=== PATIENT | male | born 1985 | race Hispanic/Latino ===

== ENCOUNTER 2017-01-15 07:08 | Emergency (ER) | payer BC, OTHER ==
[2017-01-15 07:19] VITALS: BMI 30.3
[2017-01-15 07:21] VITALS: BP 133/81; PULSE 60; RESP 16; TEMP 98.3; O2SAT 99
[2017-01-15] MEDS ORDERED: Ciprofloxacin 0.3% OPTH SOLN OD STA (08:04)
[2017-01-15] MEDS ORDERED: Amoxicillin-Clav 875-125 mg Tab PO STA (08:05)
[2017-01-15] MEDS ORDERED: Amoxicillin-Clav 875-125 mg Tab PO ONE (08:13)
--- NOTE | 2017-01-15 08:59 | C.PDOC ---
History Of Present Illness The patient, a 31 y/o male, presents to the ED for evaluation of right lower eyelid swelling and soreness which was noted this morning. Patient denies eye discharge, direct injury/trauma to the site, or use of contact lenses. Additionally, patient reports an ingrown hair to right 4th finger, as well as a small lump between his right 3rd and 4th webbed space. Patient denies injury/ trauma to his hand. He also denies fever, chills, vision change, extremity numbness/weakness. Time Seen by Provider: 01/15/17 07:56 Chief Complaint (Nursing): Eye Problem History Per: Patient History/Exam Limitations: no limitations Current Symptoms Are (Timing): Still Present Injury To Eye?: No Quality: Other (+soreness ) Wears Contact Lens?: No Associated Symptoms: Swelling Additional History Per: Patient Past Medical History Reviewed: Historical Data, Nursing Documentation, Vital Signs Vital Signs: Last Vital Signs Temp 98.3 F 01/15/17 07:18 Pulse 60 01/15/17 07:18 Resp 16 01/15/17 07:18 BP 133/81 01/15/17 07:18 Pulse Ox 99 01/15/17 12:09 - Medical History PMH: No Chronic Diseases Surgical History: No Surg Hx Family History: States: Unknown Family Hx - Social History Hx Alcohol Use: Yes Hx Substance Use: No - Immunization History Hx Tetanus Toxoid Vaccination: No Hx Influenza Vaccination: No Hx Pneumococcal Vaccination: No Review Of Systems Except As Marked, All Systems Reviewed And Found Negative. Constitutional: Negative for: Fever, Chills Eyes: Positive for: Other (+swelling and soreness to R lower eyelid. no discharge ) Skin: Positive for: Other (+ingrown hair on right 4th digit; small lump between right 3rd and 4th webbed space) Neurological: Negative for: Weakness, Numbness Physical Exam - Physical Exam Appears: Non-toxic, No Acute Distress Skin: Normal Color, Warm, Dry Head: Atraumatic, Normacephalic, No Swelling (periorbital ) Eye(s): bilateral: PERRL, EOMI, right: Other (+stye formation to mid-lower eyelid with minimal swelling. no conjunctival injection. visual acuity WNL ), left: Normal Inspection Oral Mucosa: Moist Neck: Supple Chest: Symmetrical, No Deformity, No Tenderness Cardiovascular: Rhythm Regular Respiratory: Normal Breath Sounds Extremity: Normal ROM, No Tenderness, Capillary Refill (less than 2 seconds ), No Deformity, No Swelling, Other (+ingrown hair to proximal phalanx of right 4th digit with mild erythema. small palpable mass between right 3rd and 4th webbed space ) Pulses: Left Radial: Normal, Right Radial: Normal Neurological/Psych: Oriented x3, Normal Speech, Normal Cognition, Normal Sensation Gait: Steady ED Course And Treatment O2 Sat by Pulse Oximetry: 99 (on RA) - Other Rad Right Hand XR X-Ray: Interpreted by Me, Viewed By Me, Read By Radiologist Interpretation: Accession No. : [id number]. Patient Name / ID : GALILEA GARCIA / [id number]. Exam Date : 01/15/2017 08:20:57 ( Approved ). Study Comment : Sex / Age : M / [id number]. Creator : KENNEDY KWOK. Dictator : Alis Hunt V. Wardrobe Attendant : Automotive Accessory Installer : Alis Hunt V. Approver2 : Report Date : 01/15/2017 08:42:58. My Comment : *. PROCEDURE: Right Hand Radiographs. HISTORY: painful lump web btw 3-4 fingers. COMPARISON: None. FINDINGS: BONES: Normal. No fracture. JOINTS: Normal. No osteoarthritic changes. SOFT TISSUES: Normal. OTHER FINDINGS: None. IMPRESSION: Normal right hand radiographs. If further evaluation for any soft tissue masses is needed, consider MRI of the right hand Progress Note: Right hand XR ordered, results are unremarkable. Pt received Augmentin PO and Ciloxan OD. On reassessment, patient is resting comfortably, showing no signs of distress, and reports an improvement in his symptoms. Patient is stable for discharge from the ED with Rx for Augmentin and Ciloxan eye drops; he is advised to follow up with director behavioral health and hand specialist within 1-2 days for further evaluation. Disposition - Disposition Referrals: Oscar Cueto MD [Staff Provider] - Guerita Wilkins MD [Staff Provider] - Disposition: HOME/ ROUTINE Disposition Time: 08:56 Condition: STABLE Additional Instructions: Follow up with PMD, Assistant Softball Coach and Hand specialist within 1-2 days. Return to ED if feel worse. Prescriptions: Amoxicillin/Clavulanate [Augmentin 875 MG-125 MG] 1 tab PO BID #14 tab Ciprofloxacin 0.3% [Ciloxan 0.3% Ophth SOLN] 1 drop OD Q2 #1 bottle Instructions: [place] (ED) Forms: Work Excuse - Clinical Impression Clinical Impression: Paco Ireland - PA / BEHAVIORAL MODIFICATION ASSISTANT / Resident Statement MD/DO has reviewed & agrees with the documentation as recorded. - Scribe Statement The provider has reviewed the documentation as recorded by the Scribe (Susan Hunter) All medical record entries made by the Scribe were at my direction and personally dictated by me. I have reviewed the chart and agree that the record accurately reflects my personal performance of the history, physical exam, medical decision making, and the department course for this patient. I have also personally directed, reviewed, and agree with the discharge instructions and disposition.
--- NOTE | 2017-01-15 11:37 | RAD ---
PROCEDURE: Right Hand Radiographs. HISTORY: painful lump web btw 3-4 fingers COMPARISON: None. FINDINGS: BONES: Normal. No fracture. JOINTS: Normal. No osteoarthritic changes. SOFT TISSUES: Normal. OTHER FINDINGS: None. IMPRESSION: Normal right hand radiographs. If further evaluation for any soft tissue masses is needed, consider MRI of the right hand
== END 2017-01-15 09:01 | disposition home or self-care (01) ==
LOC: C.ER 07:08
DX: H00.012 Hordeolum externum right lower eyelid (principal); L73.1 Pseudofolliculitis barbae